=== PATIENT | female | born 2000 | race Caucasian/White ===

== ENCOUNTER 2024-09-07 07:42 | Inpatient (IN) ==
[2024-09-07] MEDS ORDERED: CALCIUM CARBONATE 500 MG CHEWABLE TAB PO PRN (07:50)
[2024-09-07] MEDS ORDERED: OXYTOCIN 30 UNITS/NSS 30 UNITS/500 ML BAG IV PRN ×2 (07:50→19:18)
[2024-09-07] MEDS ORDERED: LIDOCAINE 1% LOCAL 20 ML VIAL INFIL PRN (07:50)
[2024-09-07 08:24] LABS: Hemoglobin 11.8 g/dl (12.0-16.0); Mean Corpuscular Hemoglobin 28.8 pg (25.0-34.0); Mean Corpuscular Hgb Conc 33.7 g/dL (32.0-36.0); Mean Corpuscular Volume 85.4 fL (80.0-100.0); Mean Platelet Volume 11.6 fL (9.4-12.4); Platelet Count 143 K/uL (130-400); RDW Coefficient of Variation 12.6 % (11.5-14.5); RDW Standard Deviation 38.5 fL (36.4-46.3); White Blood Count 8.88 K/ul (4.8-10.8)
--- NOTE | 2024-09-07 08:43 | History & Physical Report ---
Date of Service September 07, 2024 Assessment & Plan (1) Supervision of normal first : Plan: 24 yo G1 at 39 6/7 wga presents for eIOL VSS Fetus cat 1 Labor - will start w/ farias/pit, 35cc farias placed after consent obtained. GBS neg epidural prn Admission and Anticipated Discharge Date Admission Date: September 07, 2024 History of Present Illness Chief Complaint: IOL Primary Care Provider: NO PCP 24 yo G1 at 39 6/7 wga presents for eIOL. 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 Allergies Allergy/AdvReac Type Severity Reaction Status Date / Time No Known Allergies Allergy Verified 09/06/24 09:50 Home Medications Medication Instructions Recorded Confirmed Type PNV no.[id number] PO 04/07/24 09/06/24 History [ Gummies] Patient History Medical History Varicella vaccination Surgical History S/P tonsillectomy Family History (System 04/20/24 @ 10:44 by Pricila Connors) Father Thyroid cancer Sister Gestational diabetes x2 Denies family history of Ovarian cancer Breast cancer Colorectal cancer Social History (System 04/20/24 @ 10:44 by Pricila Connors) Smoking Status: Never smoker Second Hand Exposure: No; Do You Dip or Chew Tobacco: No; Tobacco Cessation Education Requested by Patient: No Hx Alcohol Use: No Hx Substance Use: No Preferred Language: Croatian Aws Consultant Required: No Beliefs That Will Affect Care: None marital status: marital status details: Herrera Polanco (24) [phone] Current Living Situation: Spouse Current Living Situation Comment: - Herrera current occupational status: employed current occupation: [employer] nurse Other Information That Helps Us Care for You: No Feels Safe at Home: Yes Safety Concerns: Feels Safe At This Time Assistive Devices: None Physical Exam Genitourinary: OB Exam Abdomen: + vertex and + estimated weight (7-8) Manual OB Exam: + cervical dilation (1.5), + cervical effacement 70% and + station -2 OB Exam Monitor Tracing: + external FHT monitor used, + external uterine monitor used and + category I (150/mod/+accel/-decel) Results & Data Vital Signs (Past 12 Hours) Vital Signs Temp Pulse Resp BP 09/07/24 08:37 78 138/84 09/07/24 08:32 97.9 F 78 16 138/84 Laboratory Results Lab Results OB Labs: Hgb 11.8 g/dl (12.0-16.0) L 07/06/24 Hct 33.2 % (37.0-47.0) L 07/06/24 Treponema pallidum Ab Negative (Negative) 07/06/24 Hepatitis C Antibody Negative (Negative) 04/14/24 Glucose 1 Hr 50 gm 115 mg/dl (70-130) 07/06/24 OB Optional Labs: No Data to Display Labs Reviewed: Initial OB Labs Blood Type & RH A positive 02/03/24 Antibody Screen negative 02/03/24 HCT/HGB 40.0/13.8 02/03/24 Platelets 181 02/03/24 Hep C IgG 13yrs+ Old Pap Test WNL 08/17/22 Chlamydia not detected 03/01/24 Gonorrhea not detected 03/01/24 Rubella immune 02/03/24 RPR non-reactive 02/03/24 Urine Culture/Screen < 10,000 colonies 02/03/24 HBsAg non-reactive 02/03/24 HIV negative 02/03/24 MCV 91 02/03/24 Diagnostic Findings fundal plac Coding Level of Care Code None Diagnoses Supervision of normal first Z34.00
[2024-09-07] MEDS: OXYTOCIN 30 UNITS/NSS 30 UNITS/500 ML BAG IV PRN (09:38)
[2024-09-07] MEDS: SODIUM CHLORIDE 0.9% 1,000 ML IV SCH (10:00)
--- NOTE | 2024-09-07 13:23 | Labor Progress Brief Note ---
Date of Service September 07, 2024 Subjective balloon out, mild cramping Assessment & Plan (1) Supervision of normal first : Plan: 24 yo G1 at 39 6/7 wga presents for eIOL VSS Fetus cat 1 Labor - pit at 12, s/p arom. Continue induction GBS neg epidural prn Admission and Anticipated Discharge Date Admission Date: September 07, 2024 Physical Exam Genitourinary: Manual OB Exam: + cervical dilation 4 cm, + cervical effacement 70%, + station -2 and + amniotic fluid (arom clear) OB Exam Monitor Tracing: + external FHT monitor used, + external uterine monitor used (q3) and + category I (135/mod/+accel/-decel) Results & Data Vital Signs (Past 12 Hours) Vital Signs Temp Pulse Resp BP 09/07/24 13:14 73 122/76 09/07/24 12:43 71 122/74 09/07/24 12:13 59 L 115/68 09/07/24 12:00 16 09/07/24 12:00 97.9 F 16 09/07/24 11:44 56 L 111/60 09/07/24 11:15 61 121/66 09/07/24 10:13 82 127/79 09/07/24 09:43 68 136/76 09/07/24 08:37 78 138/84 09/07/24 08:32 97.9 F 78 16 138/84 Coding Level of Care Code None Diagnoses Supervision of normal first Z34.00
[2024-09-07] MEDS ORDERED: ROPIVACAINE 0.5% PF 5 MG/ML 20 ML VIAL EPI PRN (15:29)
[2024-09-07] MEDS ORDERED: LIDOCAINE 2% MPF LOCAL 5 ML VIAL EPI PRN (15:29)
[2024-09-07] MEDS ORDERED: NALBUPHINE HCL INJ 10 MG/ML AMP IV PRN (15:29)
[2024-09-07] MEDS ORDERED: ePHEDrine sulfate 50 MG/ML AMP IV PRN (15:29)
[2024-09-07] MEDS ORDERED: NALOXONE HCL 0.4 MG/1 ML VIAL/CARP IV PRN (15:29)
[2024-09-07] MEDS ORDERED: ONDANSETRON INJ 2 MG/ML 2 ML VIAL IV PRN (15:29)
[2024-09-07] MEDS ORDERED: fentaNYL citrate PF 100 MCG/2 ML VIAL EPI PRN (15:29)
[2024-09-07] MEDS ORDERED: diphenhydrAMINE 50 MG/ML VIAL IV PRN (15:29)
[2024-09-07] MEDS ORDERED: SODIUM CHLORIDE 0.9% PF INJ 10 ML VIAL EPI PRN (15:29)
[2024-09-07] MEDS ORDERED: BUPIVACAINE 0.25% PF 30 ML VIAL EPI PRN (15:29)
[2024-09-07] MEDS ORDERED: fentANYL 2 MCG/ML BUPIVacaine 0.125%-NSS 100ML BAG EPI PRN (15:29)
[2024-09-07] MEDS ORDERED: NALOXONE HCL 1 MG in SODIUM CHLORIDE 0.9% 1,000 ML IV PRN (15:29)
--- NOTE | 2024-09-07 15:31 | Anesthesiology Consultation ---
Date of Service September 07, 2024 Assessment & Plan (1) Encounter for pre-operative examination: Chart Review Chart Review: Patient NOT seen in Pre Admission Testing and Acceptable Risk for Labor Epidural Consults Requested none History Height/Weight Height: 6 ft Weight: 87.543 kg Allergies Allergy/AdvReac Type Severity Reaction Status Date / Time No Known Allergies Allergy Verified 09/06/24 09:50 Medications Home Medications Medication Instructions Recorded Confirmed Last Taken PNV no.[id number] PO 04/07/24 09/06/24 Unknown [ Gummies] Active Medications Generic Name Dose Route Start Last Admin Trade Name Freq PRN Reason Stop Dose Admin Oxytocin 30 units in 500 mls @ 10 mls/hr 09/07/24 07:50 09/07/24 12:00 Pitocin 30 Units/Nss IV 09/09/24 07:49 0.6 units/hr .Q24H PRN 10 mls/hr Labor Induction/Augmentation Titration Protocol 0.6 UNITS/HR Sodium Chloride 1,000 mls @ 80 mls/hr 09/07/24 10:30 09/07/24 15:44 Nss IV 09/08/24 10:29 50 mls/hr .[id number] Infusion Past Medical History Medical History (Updated 09/07/24 @ 15:31 by Bart Alford MD) Encounter for pre-operative examination Varicella vaccination Past Family History Family History Father Thyroid cancer Sister Gestational diabetes x2 Denies family history of Ovarian cancer Breast cancer Colorectal cancer Past Surgical History Surgical History S/P tonsillectomy Social History Smoking Status: Never smoker Do You Dip or Chew Tobacco: No Hx Alcohol Use: No Hx Substance Use: No Physical Exam Vital Signs Last Vital Signs Temp 36.6 C 09/07/24 15:15 Pulse 69 09/07/24 15:48 Resp 20 09/07/24 15:15 BP 128/86 09/07/24 15:48 Pulse Ox 100 09/07/24 15:44 Testing Laboratory Results 09/07/24 07:59
[2024-09-07] MEDS: BUPIVACAINE 0.25% PF 30 ML VIAL ONE (15:41)
[2024-09-07] MEDS: fentaNYL citrate PF 100 MCG/2 ML VIAL ONE (15:41)
[2024-09-07] MEDS: SODIUM CHLORIDE 0.9% PF INJ 10 ML VIAL ONE (15:42)
[2024-09-07] MEDS: LIDOCAINE 2%/EPINEPHRINE 1:200,000 20 ML PF ONE (15:51)
[2024-09-07] MEDS: fentANYL 2 MCG/ML BUPIVacaine 0.125%-NSS 100ML BAG ONE (15:52)
[2024-09-07] MEDS: ePHEDrine sulfate 50 MG/ML AMP ONE (15:59)
--- NOTE | 2024-09-07 19:14 | Delivery Summary ---
Vaginal Delivery Summary Date of Service September 07, 2024 Vaginal Delivery Summary and 3rd Degree LAC PREOPERATIVE DIAGNOSIS: 1. Single intrauterine at 39 6/7 wga 2. Elective induction POSTOPERATIVE DIAGNOSIS: 1. Single intrauterine at 39 6/7 wga 2. Elective induction 3. Delivered PROCEDURE: 1. Normal spontaneous vaginal delivery. SURGEON: Mee Penn MD ANESTHESIA: Epidural. QUANTITATIVE BLOOD LOSS: 177 mL FLUIDS: Continuous LR. URINE OUTPUT: 200cc by straight cath after delivery COMPLICATIONS: None. CONDITION: Stable. INDICATIONS: 24 yo G1 at 39 6/7 wga presented for elective induction of labor. Induction was begun with bulb and pitocin. Following bulb expulsion, she underwent arom. She received an epidural for pain control and progressed to complete and desired to push FINDINGS: A viable female infant, weight pending with Apgars of 8 and 9 at 1 and 5 minutes respectively. SPECIMEN: Cord blood OPERATIVE REPORT: The patient progressed to 10 cm, 100% effaced and +2 station, pushed over intact perineum with anesthesia to deliver a viable female infant, weight and Apgars as above. Head of delivered in BECKI position. No nuchal cord was present. Body and shoulders were delivered without difficulty. was delivered to maternal abdomen and nursing staff. Delayed cord clamping was performed for 60 seconds. Cord was clamped and cut. Cord blood was obtained. Placenta delivered spontaneously intact with 3-vessel cord. IV oxytocin and fundal massage were given for excellent hemostasis. Vagina, cervix, perineum, and placenta were inspected. A 3b laceration was noted and repaired in the usual fashion using 2-0 and 3-0 vicryl. The EAS was reapproximated using 2-0 and remainder of repair completed using 3-0 vicryl. Rectal exam confirmed no suture in the rectum. Sponge and needle counts correct x2. No sponges were left behind. Mother and stable in immediate period. [facility] Vaginal Delivery Charge Vaginal Delivery Codes: 72241 global code for the antepartum, delivery, and post- Delivery Type Details: and 3rd Degree LAC
[2024-09-07] MEDS ORDERED: ACETAMINOPHEN 325 MG TAB PO PRN (19:18)
[2024-09-07] MEDS ORDERED: HYDROCORTISONE ACETATE 25 MG SUPP PR PRN (19:18)
[2024-09-07] MEDS ORDERED: cefOXitin 2,000 MG in DEXTROSE 5 % MINI-B 50 ML IV STA (19:18)
[2024-09-07] MEDS: BUPIVACAINE 0.25% PF 30 ML VIAL EPI STA (19:19)
[2024-09-07] MEDS: SODIUM CHLORIDE 0.9% PF INJ 10 ML VIAL EPI STA (19:20)
[2024-09-07] MEDS: LIDOCAINE 2%/EPINEPHRINE 1:200,000 20 ML PF EPI STA (19:20)
[2024-09-07] MEDS: fentaNYL citrate PF 100 MCG/2 ML VIAL EPI STA (19:20)
--- NOTE | 2024-09-07 19:58 | Anesthesia Procedure Note ---
Date of Service September 07, 2024 Anesthesia Post Epidural Note Vital Signs Vital Signs: Temp Pulse Resp BP Pulse Ox 36.6 C 78 20 123/68 99 09/07/24 17:00 09/07/24 19:55 09/07/24 18:30 09/07/24 19:55 09/07/24 19:55 Pain Intensity Left Abdomen: Pain Intensity: 6 Notes Mental Status: alert / awake / arousable and participated in evaluation Patient Amnestic to Procedure: No Nausea / Vomiting: adequately controlled Pain: adequately controlled Airway Patency, RR, SpO2: stable & adequate BP & HR: stable & adequate Hydration State: stable & adequate Neuraxial Anesthesia: was administered, sensory block is resolving and sensory block resolved Anesthetic Complications: no major complications apparent and Pt Satisfied with anesthetic care Epidural: Removed without complications and With tip intact
[2024-09-07] MEDS: IBUPROFEN 600 MG TAB PO PRN (21:22)
[2024-09-07] MEDS: DOCUSATE SODIUM 100 MG CAP PO SCH (21:22)
[2024-09-07] MEDS: BENZOCAINE 20% SPRY 85 APPLN/85 GM CAN EXT PRN (21:22)
[2024-09-07] MEDS: ACETAMINOPHEN 325 MG TAB PO PRN (23:19)
--- NOTE | 2024-09-08 07:29 | Obstetrical Progress Note ---
Date of Service September 08, 2024 Assessment & Plan (1) (normal spontaneous vaginal delivery): Plan Both mom and baby doing well. Observe today. Plan to discharge tomorrow if they feel ready to go home. Admission and Anticipated Discharge Date Admission Date: September 07, 2024 Supervising Physician Co-Signing Physician Notes Resident Physician Supervision Note: I interviewed and examined the patient. Discussed with Dr. Davila and agree with findings and plan as documented in the note. Any exceptions or clarifications are listed here: PP1 s/p , doing well. VSS, exam wnl. Continue routine care Documented By: Mee Penn MD Subjective #12 hrs following at 39+6 week POG. No active complains Both mom and baby doing well. Pain: Mild, intermittent Lochia: Moderate Diet: Regular Ob diet Bowel Movement: Not yet Gas: Aware of passing, no abdominal distension Peeing: Normal, no bladder distension Ambulation: Normally Review of Systems Review of Systems: No SOB, chest pain, leg pain No dizziness, headache, palpitation No Blurring of vision , fever Physical Exam Physical Exam: General: Alert and oriented. No acute distress. CVS: S1 S2+ No murmurs, regular rhythm. Respiratory: CTA bilaterally. No rhonchi, wheezes, or crackles. No increased work of breathing. Abdomen: Bowel sound +. Soft, nontender Uterus: Fundus firm and palpable few cm below the umbilicus. Lower extremities: No LE edema. No deep calf pain. Results & Data Vital Signs (Past 12 Hours) Vital Signs Temp Pulse Pulse Resp BP BP Pulse Ox 09/08/24 05:45 36.5 C 65 16 116/74 09/08/24 02:00 36.7 C 71 16 122/78 09/07/24 22:30 36.6 C 16 109/56 L 09/07/24 21:10 18 09/07/24 21:10 101 H 107/69 09/07/24 21:00 74 100 09/07/24 20:55 75 116/55 L 100 09/07/24 20:50 90 100 09/07/24 20:45 72 99 09/07/24 20:40 18 09/07/24 20:40 100 09/07/24 20:40 76 09/07/24 20:40 71 116/57 L 09/07/24 20:35 71 99 09/07/24 20:30 64 100 09/07/24 20:25 71 121/65 100 09/07/24 20:20 71 100 09/07/24 20:15 73 99 09/07/24 20:10 18 09/07/24 20:10 100 09/07/24 20:10 77 09/07/24 20:10 81 115/67 09/07/24 20:05 78 99 09/07/24 20:00 81 98 09/07/24 19:55 18 09/07/24 19:55 99 09/07/24 19:55 78 09/07/24 19:55 75 123/68 09/07/24 19:50 72 99 09/07/24 19:45 70 100 09/07/24 19:40 18 09/07/24 19:40 79 120/63 99 09/07/24 19:35 67 99 09/07/24 19:30 68 100 09/07/24 19:25 18 09/07/24 19:25 100 09/07/24 19:25 70 09/07/24 19:25 63 115/57 L O2 Del Method 09/08/24 05:45 Room Air 09/08/24 02:00 Room Air 09/07/24 22:30 Room Air 09/07/24 21:10 09/07/24 21:10 09/07/24 21:00 09/07/24 20:55 09/07/24 20:50 09/07/24 20:45 09/07/24 20:40 09/07/24 20:40 09/07/24 20:40 09/07/24 20:40 09/07/24 20:35 09/07/24 20:30 09/07/24 20:25 09/07/24 20:20 09/07/24 20:15 09/07/24 20:10 09/07/24 20:10 09/07/24 20:10 09/07/24 20:10 09/07/24 20:05 09/07/24 20:00 09/07/24 19:55 09/07/24 19:55 09/07/24 19:55 09/07/24 19:55 09/07/24 19:50 09/07/24 19:45 09/07/24 19:40 09/07/24 19:40 09/07/24 19:35 09/07/24 19:30 09/07/24 19:25 09/07/24 19:25 09/07/24 19:25 09/07/24 19:25
[2024-09-08] MEDS: DIPHTHER/TETAN/PERTUS Vaccine (Tdap, Adol/Adult) 0.5mL IM ONE (08:25)
[2024-09-08] MEDS: FERROUS SULFATE 325 MG TAB PO SCH (09:02)
[2024-09-08] MEDS: PRENATAL VITAMIN 1 TAB PO SCH (09:04)
[2024-09-08 19:20] VITALS: RESP 16
[2024-09-08] MEDS: bisacodyL 5 MG TABEC PO SCH (20:37)
[2024-09-09 07:56] VITALS: BP 117/70; TEMP 98.4; O2SAT 99
--- NOTE | 2024-09-09 08:11 | Obstetrical Progress Note ---
Date of Service September 09, 2024 Assessment & Plan (1) (normal spontaneous vaginal delivery): Plan Both mom and baby doing well. Discharge today as per protocol. Admission and Anticipated Discharge Date Admission Date: September 07, 2024 Supervising Physician Co-Signing Physician Notes Resident Physician Supervision Note: I interviewed and examined the patient. Discussed with Dr. Davila and agree with findings and plan as documented in the note. Any exceptions or clarifications are listed here: Doing well. Plan d/c today. Instructions reviewed. Documented By: Khushi Allen MD, FACOG Subjective #2PPD following at 39+6 week POG. No active complains Both mom and baby doing well. Pain: Mild, intermittent Lochia: Moderate Diet: Regular Ob diet Bowel Movement: Not yet Gas: Aware of passing, no abdominal distension Peeing: Normal, no bladder distension Ambulation: Normally Review of Systems Review of Systems: No SOB, chest pain, leg pain No dizziness, headache, palpitation No Blurring of vision , fever Physical Exam Physical Exam: General: Alert and oriented. No acute distress. CVS: S1 S2+ No murmurs, regular rhythm. Respiratory: CTA bilaterally. No rhonchi, wheezes, or crackles. No increased work of breathing. Abdomen: Bowel sound +. Soft, nontender Uterus: Fundus firm and palpable few cm below the umbilicus. Lower extremities: No LE edema. No deep calf pain. Results & Data Vital Signs (Past 12 Hours) Vital Signs Temp Pulse Pulse Resp BP Pulse Ox O2 Del Method 09/09/24 07:21 36.9 C 56 L 16 117/70 99 Room Air 09/09/24 05:22 36.5 C 64 16 126/82 100 Room Air 09/08/24 23:06 36.5 C 60 16 113/67 98 Room Air
[2024-09-09 11:27] VITALS: PULSE 64
== END 2024-09-09 14:35 | disposition home or self-care (01) | DRG 768 ==
LOC: 4S1 07:42 → 4E2 22:04